=== PATIENT | male | born 1960 | race Caucasian/White ===

== ENCOUNTER 2022-05-13 08:30 | Emergency (ER) | payer BC ==
[~2022-05-13] VITALS: Ht 177.8 cm; Wt 106.5 kg
[2022-05-13 08:50] VITALS: TEMP 97.9
[2022-05-13] MEDS ORDERED: NORVASC 5MG5 MG/TAB PO (10:00)
[2022-05-13 10:05] VITALS: BP 177/91; PULSE 77
== END 2022-05-13 10:10 | disposition home or self-care (01) ==
LOC: COL.ER 08:30
DX: I10 Essential (primary) hypertension (principal)